=== PATIENT | male | born 1995 | race Hispanic/Latino ===

== ENCOUNTER 2025-02-24 00:16 | Emergency (ER) | payer SELFPAY ==
[2025-02-24] MEDS ORDERED: Tetracaine 0.5% PF 4 ML BOT ONE (00:42)
[2025-02-24] MEDS ORDERED: Fluorescein Opthalmic Strip ONE (00:42)
== END 2025-02-24 00:57 | disposition home or self-care (01) ==
LOC: CSHERS 00:16
DX: S05.02XA Injury of conjunctiva and corneal abrasion without foreign body, left eye, initial encounter (principal); H10.9 Unspecified conjunctivitis; F17.210 Nicotine dependence, cigarettes, uncomplicated; W22.8XXA Striking against or struck by other objects, initial encounter
CPT/HCPCS: 99283